=== PATIENT | female | born 1990 | race Caucasian/White ===

== ENCOUNTER → 2024-03-02 | Outpatient (CLI) | payer BC ==
--- NOTE | 2024-03-02 13:53 | US ---
EXAMINATION TYPE: US thyroid st tissue head/neck DATE OF EXAM: 03/02/2024 COMPARISON: NONE CLINICAL INDICATION: Female, 33 years old with history of R59.0 LOCALIZED ENLARGED LYMPH NODES; Patie nt states palpable lymph nodes on neck for 6 months. No sickness that she knows of. States she is als o getting tested for autoimmune disorders. Bilateral neck scanned, there are multiple lymph nodes seen bilaterally. On the right side, largest m easures 1.3 x 0.6cm with a 2mm cortex. It has an echogenic hilum and hypoechoic cortex and is wider t paige it is tall. On the left, the largest measures 1.5cm with a 4mm cortex. It is oblong in shape. It has an echogenic hilum. The cortex is slightly diffusely increased in echogenicity. IMPRESSION: Mildly enlarged lymph nodes as described above. They are amenable to ultrasound-guided fine-needle as piration if clinically indicated.
== END | disposition home or self-care (01) ==
LOC: RADUSWWP 06:49
PROVIDERS: ATTEND Family Medicine
DX: R59.0 Localized enlarged lymph nodes (principal)
CPT/HCPCS: 76536

== ENCOUNTER → 2024-03-27 | Outpatient (CLI) | payer BC ==
--- NOTE | 2024-03-27 08:08 | CT ---
EXAMINATION TYPE: CT soft tissue neck w con CT DLP: 466 mGycm, Automated exposure control for dose reduction was used. DATE OF EXAM: 03/27/2024 7:11 AM COMPARISON: Ultrasound 03/02/2024.. CLINICAL INDICATION:Female, 33 years old with history of R59.0 LOCALIZED ENLARGED LYMPH NODES; enlarg ed lymph nodes TECHNIQUE: Standard enhanced CT of the neck. Axial sections with coronal and sagittal reformats were obtained. Contrast used:100 mL of Isovue 300 with IV Contrast, (None if empty) Oral contrast used: (None if empty) FINDINGS: Brain: Visualized portions are grossly unremarkable. Orbits: Unremarkable Sinuses: Mild paranasal sinus mucosal thickening. Spaces of the neck: Clear and symmetric. Morphologic normal appearing lymph node in the area of palpa ble abnormality in the right neck. No enlarged lymph nodes identified. Musculoskeletal: No acute osseous pathology. Lymph nodes: Multiple nonenlarged lymph nodes are seen along both anterior chains of the neck. Vascular structures: Visualized major arteries are patent without evidence of aneurysm. Thoracic Inlet/airway: Airway is patent. The lung apices are clear. Soft tissues/Thyroid: Thyroid and remainder of the soft tissues are unremarkable. Other: none. IMPRESSION Morphologic normal appearing lymph node in the area of palpable abnormality in the neck. No enlarged lymph nodes identified.
== END | disposition home or self-care (01) ==
LOC: RADCTMAIN 06:18
PROVIDERS: ATTEND Family Medicine
DX: R59.0 Localized enlarged lymph nodes (principal)
CPT/HCPCS: 70491; Q9967